=== PATIENT | male | born 1955 | race Caucasian/White ===

== ENCOUNTER 2020-12-31 21:15 | Observation (INO) | payer MEDICARE ==
[2020-12-31] MEDS ORDERED: Sodium Chloride 0.9% 10 ML Syringe FLUSH PRN (21:26)
[2020-12-31] MEDS ORDERED: Sodium Chloride 0.9% 1,000 ML IV ONE (21:26)
[2020-12-31] MEDS ORDERED: Sodium Chloride 0.9% 2.5 ML Syringe FLUSH PRN (21:26)
--- NOTE | 2020-12-31 21:50 | CR ---
INDICATION: Chest pain TECHNIQUE: Chest radiograph 1 view on 2 films COMPARISON: None FINDINGS: The sensitivity and specificity of the exam are severely limited by the patient`s body habitus. Mediastinum: Previous median sternotomy and coronary artery bypass grafting (CABG) noted. The heart silhouette is normal in size and morphology. Moderate elevation of the right hemidiaphragm is noted which may be due to diaphragmatic weakness or paralysis. Lung: Right basilar discoid and compressive atelectasis is noted. No sign of pleural effusion seen. No pneumothorax is identified. Bone and Soft tissue: Unremarkable for age. IMPRESSION: 1. Right basilar discoid and compressive atelectasis is noted. Dictated by Silvio Benítez MD @ 12/31/2020 9:49:27 PM Dictated by: Silvio Benítez MD @ 12/31/2020 21:49:32 (Electronically Signed)
[2020-12-31 22:01] LABS: BLOOD UREA NITROGEN,BUN 21 mg/dL (7.0-18.0); CARBON DIOXIDE,CO2 25.6 mmol/L (21.0-32.0); CHLORIDE,CL 103 mmol/L (98-107); GLUCOSE RANDOM 69 mg/dL (74-106); POTASSIUM,K 3.9 mmol/L (3.5-5.1); SODIUM,NA 140 mmol/L (136-148)
[2021-01-01] MEDS ORDERED: 50% Dextrose in Water 50 ML Syringe IVPUSH PRN (01:08)
[2021-01-01] MEDS ORDERED: Glucagon,Human Recombinant 1 MG Vial IM PRN (01:08)
[2021-01-01] MEDS ORDERED: Morphine 2 MG/ML SYRINGE IVPUSH PRN (01:10)
[2021-01-01] MEDS ORDERED: Ondansetron 4 MG/2 ML SDV IVPUSH PRN (01:10)
[2021-01-01] MEDS ORDERED: Acetaminophen 325 MG Tab PO PRN (01:12)
[2021-01-01] MEDS ORDERED: Albuterol/Ipratropium 4 GM Inhalation Spray INH PRN (01:19)
[2021-01-01 02:26] LABS: HEMOGLOBIN A1C 6.9 %
[2021-01-01] MEDS: Insulin Aspart 100 Units/ML 3 ML Pen SUBCUT SCH ×2 (07:33→11:41)
--- NOTE | 2021-01-01 08:04 | PCM.HP.2 ---
H&P History of Present Illness - General Date of Service: 01/01/21 Admit Problem/Dx: Admission Diagnosis/Problem Admission Diagnosis/Problem Acute coronary syndrome Source of Information: Patient History Limitations: Reports: No Limitations - History of Present Illness Initial Comments - Free Text/Narative: This 65-year-old male with past medical history of CAD status post CABG, DM type II, hypertension and Charcot foot to his right, presented to the ER with complaints of right-sided chest pain that started approximately an hour prior to arrival. He reports he is talking to his on the phone holding his left arm up. He reports the pain started in his left shoulder moved to his bilateral trapezius muscles. He reports that he was just feeling generally not well and had a of one of his . He reports that he was having some right sided pain this was worse with movement of his arms and can feel it with deep breathing. He denies any diaphoresis. He reports he had mild shortness of breath when he tried to lay down and was laying on his right side and then transition to his left which he felt that he continued to feel short of breath and then felt he needed to be evaluated in the ER for concerns of a heart attack. He reports he had a CABG approximately 4 years ago he reports at that time his chest pain was very indigestion-like and felt he only had GERD but when he was evaluated at hospital he was found to be having an CT. He reports he has been compliant with medications. 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 He denies any recent stress test since his CABG. He reports he continues to work limiting strenuous activities. He denies any tobacco use no recreational drug use and no alcohol use. He is originally from [facility] has no family appear at this time as he is working here. He reports is back home at this time. He reports he is planning on moving potentially soon with change in job. He denies any recent fevers chills. Reports on and off intermittent headache and body aches and pains. But he reports this has been going on for the last couple months. He does report that his had Covid 19 to 3 months ago and tested positive. He was never tested at that time but reports that for 10 days he had a significant cough along with febrile illness and felt that he likely just had Covid so he was not tested. He denies COVID-19 vaccination but is inquiring about possibly getting that soon. He denies any other abdominal pain diarrhea constipation and no black or bloody bowel movements. Denies any neurological deficits. Reports that recently has been significantly stressed due to possible change in jobs and difficulties with his current boss. In the ER no leukocytosis noted hemoglobin 10.7 adequate 37.1. Platelets 206,000. D-dimer 0.37. Sodium 140 potassium 3.9 BUN 21 creatinine 1.6 blood sugar 69. A1c 6.9 AST ALT bilirubin all within normal limits initial troponin negative. Triglyceride 62 cholesterol 129 LDL 80 TSH 3.0. Chest x-ray obtained which shows right basilar discoid compressive atelectasis no pneumothorax or pleural effusion noted moderate elevation of the right hemidiaphragm is noted which may due to diaphragmatic weakness or paralysis. Vital signs in the ER mildly elevated with blood pressure of 160s over 90s. Patient remains on room air. Covid swab returned positive. Patient has no hypoxia at this time. Patient admitted for observation for chest pain rule out ACS. Headache Pain Score (Numeric/FACES): 2 chest Pain Score (Numeric/FACES): 0 - Related Data Allergies/Adverse Reactions: Allergies Allergy/AdvReac Type Severity Reaction Status Date / Time doxycycline Allergy Rash Verified 01/01/21 03:22 Home Medications: Home Meds Allopurinol [Zyloprim] 300 mg PO DAILY 12/31/20 [History] Aspirin 81 mg PO DAILY 12/31/20 [History] Clopidogrel [Plavix] 75 mg PO DAILY 12/31/20 [History] Esomeprazole Magnesium [Nexium] 2.5 packet PO DAILY 12/31/20 [History] Ferrous Sulfate, Dried [Iron] 130 mg PO DAILY 12/31/20 [History] Fish Oil/[place]-3 Fatty Acids [Fish Oil 1,000 MG] 1,200 mg PO DAILY 12/31/20 [History] Insulin Aspart [NovoLOG] 10 units SUBCUT BID 12/31/20 [History] Insulin Glargine,Hum.Rec.Anlog [Basaglar Kwikpen U-100] 80 units SUBCUT DAILY 12/31/20 [History] Levothyroxine [Synthroid] 50 mcg PO DAILY 12/31/20 [History] Losartan [Cozaar] 50 mg PO DAILY 12/31/20 [History] Metoprolol Succinate 50 mg PO DAILY 12/31/20 [History] Vitamin E 400 unit PO DAILY 12/31/20 [History] amLODIPine [Norvasc] 10 mg PO DAILY 12/31/20 [History] atorvaSTATin [Lipitor] 80 mg PO BEDTIME 12/31/20 [History] sitaGLIPtin Phos/Metformin HCl [Janumet 50-1,000 MG] 50 - 1,000 mg PO BID 12/31/20 [History] Past Medical History HEENT History: Reports: None, Impaired Vision Cardiovascular History: Reports: Bypass, CAD, Hypertension, CT, Stents. Denies: Afib Other Cardiovascular History: stents Respiratory History: Reports: None. 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 Neurological History: Reports: None Psychiatric History: Reports: None Endocrine/Metabolic History: Reports: Diabetes, Type II, Hypothyroidism, Obesity/BMI 30+ Hematologic History: Reports: None Immunologic History: Reports: None Oncologic (Cancer) History: Reports: Renal Dermatologic History: Reports: Other (See Below) Other Dermatologic History: cyst removal to back - Infectious Disease History Infectious Disease History: Reports: None - Past Surgical History Head Surgeries/Procedures: Reports: None Cardiovascular Surgical History: Reports: Coronary Artery Bypass, Coronary Artery Stent Male Surgical History: Reports: Nephrectomy Musculoskeletal Surgical History: Reports: Amputation (partial R phalanges) Oncologic Surgical History: Reports: Other (See Below) Other Oncologic Surgeries/Procedures: nephrectomy (right) 2015 Social & Family History - Family History Family Medical History: No Pertinent Family History - Tobacco Use Tobacco Use Status *Q: Never Tobacco User Second Hand Smoke Exposure: No - Caffeine Use Caffeine Use: Reports: None - Alcohol Use Alcohol Use History: No - Recreational Drug Use Recreational Drug Use: No - Living Situation & Occupation Living situation: Reports: Occupation: Employed (Works in the oil field) H&P Review of Systems - Review of Systems: Review Of Systems: See Below General: Reports: Malaise. Denies: Fever, Chills HEENT: Reports: Headaches (Intermittent denies visual changes no migraine or aura). Denies: Sinus Congestion, Sore Throat Pulmonary: Reports: Shortness of Breath (Had mild shortness of breath last night has improved this morning). Denies: Cough, Sputum, Hemoptysis Cardiovascular: Reports: Chest Pain (Right-sided chest pain last night has not had none since arrival to [facility] unit). Denies: Palpitations, Dyspnea on Exertion, Edema, Lightheadedness Gastrointestinal: Reports: No Symptoms. Denies: Abdominal Pain, Black Stool, Bloody Stool, Nausea, Vomiting Genitourinary: Reports: No Symptoms. Denies: Dysuria, Frequency Musculoskeletal: Reports: No Symptoms Skin: Reports: No Symptoms Psychiatric: Reports: No Symptoms Neurological: Reports: No Symptoms Hematologic/Lymphatic: Reports: No Symptoms Immunologic: Reports: No Symptoms Exam - Exam Exam: See Below - Vital Signs Vital Signs: Last Vital Signs Temp 98.7 F 01/01/21 06:07 Pulse 104 H 01/01/21 06:07 Resp 16 01/01/21 06:07 BP 139/84 01/01/21 06:07 Pulse Ox 93 L 01/01/21 06:07 Weight: 142.746 kg - Exam Quality Assessment: DVT Prophylaxis. No: Supplemental Oxygen General: Alert, Oriented, Cooperative HEENT: Conjunctiva Clear, Mucosa Moist & [place], Posterior Pharynx Clear Lungs: Clear to Auscultation, Normal Respiratory Effort Cardiovascular: Regular Rate, Regular Rhythm, Normal S1, Normal S2 GI/Abdominal Exam: Normal Bowel Sounds, Soft, Non-Tender, Other (Obese abdomen) Back Exam: Normal Inspection, Full Range of Motion Extremities: Normal Inspection, Normal Range of Motion, Non-Tender, No Pedal Edema Neuro Extensive - Mental Status: Alert, Oriented x3 Neuro Extensive - Motor, Sensory, Reflexes: CN II-XII Intact Psychiatric: Alert, Normal Affect, Normal Mood - Patient Data Lab Results Last 24 hrs: Laboratory Results - last 24 hr 12/31/20 12/31/20 12/31/20 Range/Units 21:20 21:42 21:42 WBC 9.87 (4.0-11.0) K/uL RBC 4.13 L (4.50-5.90) M/uL Hgb 12.7 L (13.0-17.0) g/dL Hct 37.1 L (38.0-50.0) % MCV 89.8 (80.0-98.0) fL MCH 30.8 (27.0-32.0) pg MCHC 34.2 (31.0-37.0) g/dL RDW Std Deviation 46.7 (28.0-62.0) fl RDW Coeff of Andres 14 (11.0-15.0) % Plt Count 206 (150-400) K/uL MPV 10.10 (7.40-12.00) fL Neut % (Auto) 46.0 L (48.0-80.0) % Lymph % (Auto) 43.0 H (16.0-40.0) % [place] % (Auto) 9.0 (0.0-15.0) % Eos % (Auto) 1.6 (0.0-7.0) % Baso % (Auto) 0.4 (0.0-1.5) % Neut # (Auto) 4.5 (1.4-5.7) K/uL Lymph # (Auto) 4.2 H (0.6-2.4) K/uL [place] # (Auto) 0.9 H (0.0-0.8) K/uL Eos # (Auto) 0.2 (0.0-0.7) K/uL Baso # (Auto) 0.0 (0.0-0.1) K/uL Nucleated RBC % 0.0 /100WBC Nucleated RBCs # 0 K/uL D-Dimer, Quantitative 0.37 (0.0-0.50) mg/L FEU Sodium 140 (136-148) mmol/L Potassium 3.9 (3.5-5.1) mmol/L Chloride 103 (98-107) mmol/L Carbon Dioxide 25.6 (21.0-32.0) mmol/L BUN 21 H (7.0-18.0) mg/dL Creatinine 1.6 H (0.8-1.3) mg/dL Est Cr Clr Drug Dosing 54.23 mL/min Estimated GFR (MDRD) 43.7 ml/min Glucose 69 L (74-106) mg/dL POC Glucose (70-99) mg/dL Hemoglobin A1c (4.5 - 6.2) % Calcium 8.8 (8.5-10.1) mg/dL Total Bilirubin 0.4 (0.2-1.0) mg/dL AST 20 (15-37) IU/L ALT 25 (14-63) IU/L Alkaline Phosphatase 105 (46-116) U/L Troponin I < 0.050 (0.000-0.056) ng/mL Total Protein 7.7 (6.4-8.2) g/dL Albumin 3.8 (3.4-5.0) g/dL Globulin 3.9 (2.6-4.0) g/dL Albumin/Globulin Ratio 1.0 (0.9-1.6) Triglycerides (0-200) mg/dL Cholesterol (50-200) mg/dL LDL Cholesterol, Calc (60-180) mg/dL VLDL Cholesterol (5-55) mg/dL HDL Cholesterol (40-60) mg/dL Cholesterol/HDL Ratio (3.3-6.0) TSH, Ultra Sensitive (0.36-3.74) uIU/mL SARS-CoV-2 RNA (CHAN) (NEGATIVE) 12/31/20 12/31/20 01/01/21 Range/Units 22:06 23:10 02:10 WBC (4.0-11.0) K/uL RBC (4.50-5.90) M/uL Hgb (13.0-17.0) g/dL Hct (38.0-50.0) % MCV (80.0-98.0) fL MCH (27.0-32.0) pg MCHC (31.0-37.0) g/dL RDW Std Deviation (28.0-62.0) fl RDW Coeff of Andres (11.0-15.0) % Plt Count (150-400) K/uL MPV (7.40-12.00) fL Neut % (Auto) (48.0-80.0) % Lymph % (Auto) (16.0-40.0) % [place] % (Auto) (0.0-15.0) % Eos % (Auto) (0.0-7.0) % Baso % (Auto) (0.0-1.5) % Neut # (Auto) (1.4-5.7) K/uL Lymph # (Auto) (0.6-2.4) K/uL [place] # (Auto) (0.0-0.8) K/uL Eos # (Auto) (0.0-0.7) K/uL Baso # (Auto) (0.0-0.1) K/uL Nucleated RBC % /100WBC Nucleated RBCs # K/uL D-Dimer, Quantitative (0.0-0.50) mg/L FEU Sodium (136-148) mmol/L Potassium (3.5-5.1) mmol/L Chloride (98-107) mmol/L Carbon Dioxide (21.0-32.0) mmol/L BUN (7.0-18.0) mg/dL Creatinine (0.8-1.3) mg/dL Est Cr Clr Drug Dosing mL/min Estimated GFR (MDRD) ml/min Glucose (74-106) mg/dL POC Glucose (70-99) mg/dL Hemoglobin A1c (4.5 - 6.2) % Calcium (8.5-10.1) mg/dL Total Bilirubin (0.2-1.0) mg/dL AST (15-37) IU/L ALT (14-63) IU/L Alkaline Phosphatase (46-116) U/L Troponin I < 0.050 < 0.050 (0.000-0.056) ng/mL Total Protein (6.4-8.2) g/dL Albumin (3.4-5.0) g/dL Globulin (2.6-4.0) g/dL Albumin/Globulin Ratio (0.9-1.6) Triglycerides (0-200) mg/dL Cholesterol (50-200) mg/dL LDL Cholesterol, Calc (60-180) mg/dL VLDL Cholesterol (5-55) mg/dL HDL Cholesterol (40-60) mg/dL Cholesterol/HDL Ratio (3.3-6.0) TSH, Ultra Sensitive (0.36-3.74) uIU/mL SARS-CoV-2 RNA (CHAN) POSITIVE H (NEGATIVE) 01/01/21 01/01/21 01/01/21 Range/Units 02:10 02:10 06:30 WBC (4.0-11.0) K/uL RBC (4.50-5.90) M/uL Hgb (13.0-17.0) g/dL Hct (38.0-50.0) % MCV (80.0-98.0) fL MCH (27.0-32.0) pg MCHC (31.0-37.0) g/dL RDW Std Deviation (28.0-62.0) fl RDW Coeff of Andres (11.0-15.0) % Plt Count (150-400) K/uL MPV (7.40-12.00) fL Neut % (Auto) (48.0-80.0) % Lymph % (Auto) (16.0-40.0) % [place] % (Auto) (0.0-15.0) % Eos % (Auto) (0.0-7.0) % Baso % (Auto) (0.0-1.5) % Neut # (Auto) (1.4-5.7) K/uL Lymph # (Auto) (0.6-2.4) K/uL [place] # (Auto) (0.0-0.8) K/uL Eos # (Auto) (0.0-0.7) K/uL Baso # (Auto) (0.0-0.1) K/uL Nucleated RBC % /100WBC Nucleated RBCs # K/uL D-Dimer, Quantitative (0.0-0.50) mg/L FEU Sodium (136-148) mmol/L Potassium (3.5-5.1) mmol/L Chloride (98-107) mmol/L Carbon Dioxide (21.0-32.0) mmol/L BUN (7.0-18.0) mg/dL Creatinine (0.8-1.3) mg/dL Est Cr Clr Drug Dosing mL/min Estimated GFR (MDRD) ml/min Glucose (74-106) mg/dL POC Glucose 95 (70-99) mg/dL Hemoglobin A1c 6.9 H (4.5 - 6.2) % Calcium (8.5-10.1) mg/dL Total Bilirubin (0.2-1.0) mg/dL AST (15-37) IU/L ALT (14-63) IU/L Alkaline Phosphatase (46-116) U/L Troponin I (0.000-0.056) ng/mL Total Protein (6.4-8.2) g/dL Albumin (3.4-5.0) g/dL Globulin (2.6-4.0) g/dL Albumin/Globulin Ratio (0.9-1.6) Triglycerides 62 (0-200) mg/dL Cholesterol 129 (50-200) mg/dL LDL Cholesterol, Calc 80 (60-180) mg/dL VLDL Cholesterol 12 (5-55) mg/dL HDL Cholesterol 37 L (40-60) mg/dL Cholesterol/HDL Ratio 3.5 (3.3-6.0) TSH, Ultra Sensitive 3.00 (0.36-3.74) uIU/mL SARS-CoV-2 RNA (CHAN) (NEGATIVE) Result Diagrams: 12/31/20 21:42 12/31/20 21:20 Sepsis Event Note - Evaluation Sepsis Screening Result: No Definite Risk - Focused Exam Vital Signs: Vital Signs Temp Pulse Resp BP Pulse Ox Pulse Ox 01/01/21 06:07 98.7 F 104 H 16 139/84 93 L 01/01/21 03:18 97.8 F 86 16 160/96 H 95 01/01/21 01:05 95 95 01/01/21 00:12 74 14 167/83 H 96 12/31/20 22:21 70 14 145/78 H 95 12/31/20 21:20 97.8 F 82 18 182/93 H 98 - Problem List (1) Chest pain SNOMED Code(s): 70261109 ICD Code: R07.9 - CHEST PAIN, UNSPECIFIED Status: Acute Current Visit: Yes (2) COVID-19 SNOMED Code(s): 123220662 ICD Code: U07.1 - COVID-19 Status: Acute Current Visit: Yes (3) CAD (coronary artery disease) SNOMED Code(s): 16405987 ICD Code: I25.10 - ATHSCL HEART DISEASE OF [place] CORONARY ARTERY W/O ANG PCTRS Status: Chronic Current Visit: Yes (4) History of coronary artery bypass graft SNOMED Code(s): 462647667, 104464890 ICD Code: Z95.1 - PRESENCE OF AORTOCORONARY BYPASS GRAFT Status: Chronic Current Visit: Yes (5) Hypertension SNOMED Code(s): 99030555 ICD Code: I10 - ESSENTIAL (PRIMARY) HYPERTENSION Status: Chronic Current Visit: Yes (6) Diabetes type 2, controlled SNOMED Code(s): 52410839, 487442103 ICD Code: E11.9 - TYPE 2 DIABETES MELLITUS WITHOUT COMPLICATIONS Status: Chronic Current Visit: Yes Qualifiers: Diabetes mellitus snf insulin use: with snf use Diabetes mignon litus complication status: without complication Qualified Code(s): E11.9 - Type 2 diabetes mellitus without complications; Z79.4 - lobsterman (current) use of insulin (7) Obesity SNOMED Code(s): 291851439, 077337614 ICD Code: E66.9 - OBESITY, UNSPECIFIED Status: Chronic Current Visit: Yes Problem List Initiated/Reviewed/Updated: Yes Orders Last 24hrs: Active Orders 24 hr Category Date Time Status Patient Status [ADT] Routine ADT 01/01/21 00:26 Active Accu Check [Blood Glucose Check, Bedside] [RC] TIDAC Care 01/01/21 07:00 Active Ambulate [RC] ASDIRECTED Care 01/01/21 01:06 Active Antiembolic Devices [RC] PER UNIT ROUTINE Care 01/01/21 01:06 Active Oxygen Therapy [RC] ASDIRECTED Care 01/01/21 01:05 Active Pulse Oximetry [RC] ASDIRECTED Care 01/01/21 01:05 Active RT Post Treatment Assessment [RC] Click to Edit Care 01/01/21 01:19 Active RT Pre-Treatment Assessment [RC] Click to Edit Care 01/01/21 01:19 Active Telemetry Monitoring [Cardiac Monitoring] [RC] Q8H Care 01/01/21 00:41 Active Vital Signs [RC] Q4H Care 01/01/21 04:00 Active [employer] Diet [DIET] Diet 01/01/21 Breakfast Active B-TYPE NATRIURETIC PEPTIDE,BNP [CHEM] Stat Lab 12/31/20 21:42 Received Acetaminophen [TylenoL] Med 01/01/21 01:12 Active 650 mg PO Q6H PRN Albuterol/Ipratropium [Combivent Respimat] Med 01/01/21 01:19 Active See Dose Instructions INH Q4H PRN Aspirin Med 01/01/21 09:00 Pending 81 mg PO DAILY Dextrose 50% in Water Med 01/01/21 01:08 Active 50 ml IVPUSH ASDIRECTED PRN Glucagon,Human Recombinant [GlucaGen] Med 01/01/21 01:08 Active 1 mg IM ASDIRECTED PRN Insulin Aspart [NovoLOG] Med 01/01/21 07:30 Active See Protocol SUBCUT TIDAC Morphine Med 01/01/21 01:10 Active 1 mg IVPUSH Q4H PRN Ondansetron [Zofran] Med 01/01/21 01:10 Active 4 mg IVPUSH Q4H PRN Pantoprazole [ProTONIX IV] 40 mg Med 01/01/21 09:00 Active Sodium Chloride 0.9% [Normal Saline] 10 ml IV DAILY Sodium Chloride 0.9% [Saline Flush] Med 12/31/20 21:26 Active 10 ml FLUSH ASDIRECTED PRN Sodium Chloride 0.9% [Saline Flush] Med 12/31/20 21:26 Active 2.5 ml FLUSH ASDIRECTED PRN atorvaSTATin [Lipitor] Med 01/01/21 09:00 Pending 40 mg PO DAILY SCD [Sequential Compression Device] [OM.PC] Routine Oth 01/01/21 01:06 Ordered Saline Lock Insert [OM.PC] Stat Oth 12/31/20 21:27 Ordered Medication Orders Acetaminophen (Acetaminophen 325 Mg Tab) 650 mg PO Q6H PRN PRN Reason: Pain/Fever Albuterol/Ipratropium (Albuterol/Ipratropium 4 Gm Inhalation Carlin) 0 gm INH Q4H PRN PRN Reason: Dyspnea Aspirin (Aspirin 81 Mg Tab.Chew) 81 mg PO DAILY AMAIRANI Atorvastatin Calcium (Atorvastatin 40 Mg Tab) 40 mg PO DAILY [facility] Dextrose/Water (50% Dextrose In Water 50 Ml Syringe) 50 ml IVPUSH ASDIRECTED PRN PRN Reason: Hypoglycemia Glucagon (Glucagon,Human Recombinant 1 Mg Vial) 1 mg IM ASDIRECTED PRN PRN Reason: Hypoglycemia Pantoprazole Sodium 40 mg/ (Sodium Chloride) 10 mls @ 300 mls/hr IV DAILY [facility] Insulin Aspart (Insulin Aspart 100 Units/Ml 3 Ml Pen) 0 unit SUBCUT TIDAC [facility]; Protocol Last Admin: 01/01/21 07:33 Dose: Not Given Documented by: DEREK Morphine Sulfate (Morphine 2 Mg/Ml Syringe) 1 mg IVPUSH Q4H PRN PRN Reason: Pain Ondansetron HCl (Ondansetron 4 Mg/2 Ml Sdv) 4 mg IVPUSH Q4H PRN PRN Reason: Nausea/Vomiting Sodium Chloride (Sodium Chloride 0.9% 10 Ml Syringe) 10 ml FLUSH ASDIRECTED PRN PRN Reason: Keep Vein Open Last Admin: 12/31/20 21:39 Dose: 10 ml Documented by: AMELIA Sodium Chloride (Sodium Chloride 0.9% 2.5 Ml Syringe) 2.5 ml FLUSH ASDIRECTED PRN PRN Reason: Keep Vein Open Last Admin: 12/31/20 21:39 Dose: 2.5 ml Documented by: AMELIA Assessment/Plan Comment:: This 65-year-old male admitted with chest pain with ACS found to be COVID-19 pos itive 1. Chest pain -Troponin x3 -monitor telemetry with no ST or T wave changes. -Lipid panel well-controlled A1c stable -Patient plans on returning home at some point. Recommended outpatient stress test/Lexiscan to evaluate cardiac function. -Order echo 2. COVID-19 -Currently not hypoxic -Patient likely had COVID-19 approximate 3 months ago with as he had febrile illness with significant cough and shortness of breath but was never t ested and never needed hospitalization 3. CAD/hypertension -Continue home medications including statin Plavix and aspirin and antihypertensives 4. DM type II -ADA diet -Monitor blood sugars 3 times daily AC -Continue home insulin regimen -A1c well controlled DVT prophylaxis: Lovenox CODE STATUS: Full code Dispo: Likely home today Discharge plan: Patient will be discharged home today ACS ruled out troponins negative x2 no changes on telemetry. Echo pending on discharge. He will be set up with Dr. Lao, cardiology for outpatient cardiology management along with Ayalaan. He will also be set up with PCP Dr. Saleh here in town as he will be here for now and likely not returning home for some time. Patient is to continue home medications of aspirin Plavix statin losartan and metoprolol. Continue diabetic management with insulin. He can return to work in 1 day light duty until cardiology follow-up and evaluation. He does not need to isolate for COVID-19 as he likely was infected 3 months prior as he had febrile and acute illness at that time. He is likely still testing positive at this time. Patient remains asymptomatic and is to continue universal masking and social distancing. He has not obtained his COVID-19 vaccination but has voiced that he is wanting this. He will be arranged to have vaccines as an outpatient. All questions and concerns addressed. Patient to be discharged home today. Follow-up in the ER or clinic sooner if concerns should arise.
[2021-01-01] MEDS ORDERED: Clopidogrel 75 MG Tab PO SCH (09:00)
[2021-01-01] MEDS ORDERED: Pantoprazole 40 MG in Sodium Chloride 0.9% 10 ML IV SCH (09:00)
[2021-01-01] MEDS ORDERED: Levothyroxine 50 MCG Tab PO SCH (09:00)
[2021-01-01] MEDS ORDERED: Losartan 50 MG Tab PO SCH (09:00)
[2021-01-01] MEDS ORDERED: Metoprolol Succinate 50 MG Tab.ER PO SCH (09:00)
[2021-01-01] MEDS ORDERED: Aspirin 81 MG Tab.Chew PO SCH (09:00)
[2021-01-01] MEDS ORDERED: amLODIPine 5 MG Tab PO SCH (09:00)
[2021-01-01] MEDS ORDERED: atorvaSTATin 40 MG Tab PO SCH ×2 (21:00)
--- NOTE | 2021-01-02 12:54 | ECHO ---
EXAM DATE: 01/01/21 PATIENT'S AGE: 65 The ECHO report has been scanned into [employer] and can be seen in this patient's EMR (Electronic Medical Record) under the REPORTS section. The report has also been scanned into PACS. ALANA
--- NOTE | 2021-01-03 06:26 | EDM.PDOC ---
ED HPI GENERAL MEDICAL PROBLEM - General Chief Complaint: Chest Pain Stated Complaint: POSSIBLE HEART ATTACK Time Seen by Provider: 12/31/20 21:34 Source of Information: Reports: Patient History Limitations: Reports: No Limitations - History of Present Illness INITIAL COMMENTS - FREE TEXT/NARRATIVE: HISTORY AND PHYSICAL: History of present illness: Is a 65-year-old gentleman with a history significant for hypertension, CAD, status post CABG, diabetes, who presents ER today secondary to episodes of left shoulder pain rating down his left arm and up his jaw. Patient reports that he had some associated shortness of breath with it. Patient reports he has had headaches and generalized not feeling well for the last several days. Patient denies any recent nausea, vomiting, diarrhea, dysuria, frequency, urgency. Patient reports that he has had a headache with some tactile fevers at home. Patient reports that he lives alone and was concerned that he might be having a heart attack given his history. Review of systems: As per history of present illness and below otherwise all systems reviewed and negative. Past medical history: As per history of present illness and as reviewed below otherwise noncontributory. Surgical history: As per history of present illness and as reviewed below otherwise noncontributory. Social history: No reported history of drug abuse. Family history: As per history of present illness and as reviewed below otherwise noncontributory. Physical exam: This patient was seen and evaluated during the 2019 SARS-CoV-2 novel coronavirus pandemic period. Community viral transmission is ongoing at time of this encounter and the emergency department is operating under pandemic response procedures. Constitutional: Patient is oriented to person, place, and time. Appears well- developed and well-nourished. No distress. HEENT: Moist mucous membranes Head: Normocephalic and atraumatic Eyes: Right eye exhibits no discharge. Left eye exhibits no discharge. No scleral icterus Neck: Normal range of motion. No tracheal deviation present. Cardiovascular: Normal rate and regular rhythm. Pulmonary: Effort normal, no respiratory distress. Abdominal: No distention Musculoskeletal: Normal range of motion Neurologic: Alert and oriented to person, place and time. Skin: Parcoal, warm and dry. Psychiatric: Normal mood and affect. Behavior is normal. Judgment and thought content normal. Nursing note and vital signs have been reviewed Diagnostics: Chest Xray: Normal cardiac silhouette No infiltrates or effusions identified. No PTX No evidence of acute bony fracture. As interpreted by ER MD: Reid EKG date: 9:17 PM December 31, 2020 Assessment and plan: 65-year-old gentleman with significant cardiac risk factors who presents ER today with chest pain and discomfort specifically pain to his left shoulder and left jaw. Patient reports that the pain that he is experiencing today is different than his prior cardiac pain. Patient reports that his prior cardiac pain felt like GERD for several days and when he fell he came to the hospital he was told that he was having a heart attack. Today he is not experiencing any occurred. Patient's labs in the ER were unremarkable with a normal troponin. Patient's Covid test was positive. Given patient's significant cardiac history he will need to be admitted to have a rule out cardiac evaluation performed. Patient's pulse ox is 97 to 98% on room air. Patient's chest x-ray is clear without any evidence of Covid pneumonia. Patient's headache is more than likely related to his Covid diagnosis. Case was discussed with Dr. Gallo who will admit patient to observation status for further cardiac evaluation. Definitive disposition and diagnosis as appropriate pending reevaluation and review of above. Headache Pain Score (Numeric/FACES): 1 chest Pain Score (Numeric/FACES): 0 - Related Data Allergies Allergy/AdvReac Type Severity Reaction Status Date / Time doxycycline Allergy Rash Verified 01/01/21 03:22 Home Meds: Home Meds Allopurinol [Zyloprim] 300 mg PO DAILY 12/31/20 [History] Aspirin 81 mg PO DAILY 12/31/20 [History] Clopidogrel [Plavix] 75 mg PO DAILY 12/31/20 [History] Esomeprazole Magnesium [Nexium] 2.5 packet PO DAILY 12/31/20 [History] Ferrous Sulfate, Dried [Iron] 130 mg PO DAILY 12/31/20 [History] Fish Oil/[place]-3 Fatty Acids [Fish Oil 1,000 MG] 1,200 mg PO DAILY 12/31/20 [History] Insulin Aspart [NovoLOG] 10 units SUBCUT BID 12/31/20 [History] Insulin Glargine,Hum.Rec.Anlog [Basaglar Kwikpen U-100] 80 units SUBCUT DAILY 12/31/20 [History] Levothyroxine [Synthroid] 50 mcg PO DAILY 12/31/20 [History] Losartan [Cozaar] 50 mg PO DAILY 12/31/20 [History] Metoprolol Succinate 50 mg PO DAILY 12/31/20 [History] Vitamin E 400 unit PO DAILY 12/31/20 [History] amLODIPine [Norvasc] 10 mg PO DAILY 12/31/20 [History] atorvaSTATin [Lipitor] 80 mg PO BEDTIME 12/31/20 [History] sitaGLIPtin Phos/Metformin HCl [Janumet 50-1,000 MG] 50 - 1,000 mg PO BID 12/31/20 [History] Past Medical History HEENT History: Reports: None, Impaired Vision Cardiovascular History: Reports: Bypass, CAD, Hypertension, [place], Stents. Denies: Afib Other Cardiovascular History: stents Respiratory History: Reports: None. 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 Neurological History: Reports: None Psychiatric History: Reports: None Endocrine/Metabolic History: Reports: Diabetes, Type II, Hypothyroidism, Ob esity/BMI 30+ Hematologic History: Reports: None Immunologic History: Reports: None Oncologic (Cancer) History: Reports: Renal Dermatologic History: Reports: Other (See Below) Other Dermatologic History: cyst removal to back - Infectious Disease History Infectious Disease History: Reports: None - Past Surgical History Musculoskeletal Surgical History: Reports: Amputation (partial R phalanges) Social & Family History - Family History Family Medical History: No Pertinent Family History - Tobacco Use Tobacco Use Status *Q: Never Tobacco User Second Hand Smoke Exposure: No - Caffeine Use Caffeine Use: Reports: None - Recreational Drug Use Recreational Drug Use: No - Living Situation & Occupation Living situation: Reports: Occupation: Employed (Works in the oil field) ED ROS GENERAL - Review of Systems Review Of Systems: See Below ED EXAM, GENERAL - Physical Exam Exam: See Below GI/Abdominal: Normal Bowel Sounds, Soft, Non-Tender, Other (Obese abdomen) Back Exam: Normal Inspection, Full Range of Motion Extremities: Normal Inspection, Normal Range of Motion, Non-Tender, No Pedal Edema Course - Vital Signs Last Recorded V/S: Last Vital Signs Temp 98.1 F 01/01/21 08:10 Pulse 99 01/01/21 09:04 Resp 18 01/01/21 08:10 BP 144/92 H 01/01/21 09:04 Pulse Ox 94 L 01/01/21 08:10 - Orders/Labs/Meds Labs: Laboratory Tests 12/31/20 12/31/20 12/31/20 Range/Units 21:20 21:42 21:42 WBC 9.87 (4.0-11.0) K/uL RBC 4.13 L (4.50-5.90) M/uL Hgb 12.7 L (13.0-17.0) g/dL Hct 37.1 L (38.0-50.0) % MCV 89.8 (80.0-98.0) fL MCH 30.8 (27.0-32.0) pg MCHC 34.2 (31.0-37.0) g/dL RDW Std Deviation 46.7 (28.0-62.0) fl RDW Coeff of Andres 14 (11.0-15.0) % Plt Count 206 (150-400) K/uL MPV 10.10 (7.40-12.00) fL Neut % (Auto) 46.0 L (48.0-80.0) % Lymph % (Auto) 43.0 H (16.0-40.0) % [place] % (Auto) 9.0 (0.0-15.0) % Eos % (Auto) 1.6 (0.0-7.0) % Baso % (Auto) 0.4 (0.0-1.5) % Neut # (Auto) 4.5 (1.4-5.7) K/uL Lymph # (Auto) 4.2 H (0.6-2.4) K/uL Gladwin # (Auto) 0.9 H (0.0-0.8) K/uL Eos # (Auto) 0.2 (0.0-0.7) K/uL Baso # (Auto) 0.0 (0.0-0.1) K/uL Nucleated RBC % 0.0 /100WBC Nucleated RBCs # 0 K/uL D-Dimer, Quantitative 0.37 (0.0-0.50) mg/L FEU Sodium 140 (136-148) mmol/L Potassium 3.9 (3.5-5.1) mmol/L Chloride 103 (98-107) mmol/L Carbon Dioxide 25.6 (21.0-32.0) mmol/L BUN 21 H (7.0-18.0) mg/dL Creatinine 1.6 H (0.8-1.3) mg/dL Est Cr Clr Drug Dosing 54.23 mL/min Estimated GFR (MDRD) 43.7 ml/min Glucose 69 L (74-106) mg/dL Calcium 8.8 (8.5-10.1) mg/dL Total Bilirubin 0.4 (0.2-1.0) mg/dL AST 20 (15-37) IU/L ALT 25 (14-63) IU/L Alkaline Phosphatase 105 (46-116) U/L Troponin I < 0.050 (0.000-0.056) ng/mL B-Natriuretic Peptide (<100) PG/ML Total Protein 7.7 (6.4-8.2) g/dL Albumin 3.8 (3.4-5.0) g/dL Globulin 3.9 (2.6-4.0) g/dL Albumin/Globulin Ratio 1.0 (0.9-1.6) SARS-CoV-2 RNA (CHAN) (NEGATIVE) 12/31/20 12/31/20 12/31/20 Range/Units 21:42 22:06 23:10 WBC (4.0-11.0) K/uL RBC (4.50-5.90) M/uL Hgb (13.0-17.0) g/dL Hct (38.0-50.0) % MCV (80.0-98.0) fL MCH (27.0-32.0) pg MCHC (31.0-37.0) g/dL RDW Std Deviation (28.0-62.0) fl RDW Coeff of Andres (11.0-15.0) % Plt Count (150-400) K/uL MPV (7.40-12.00) fL Neut % (Auto) (48.0-80.0) % Lymph % (Auto) (16.0-40.0) % [place] % (Auto) (0.0-15.0) % Eos % (Auto) (0.0-7.0) % Baso % (Auto) (0.0-1.5) % Neut # (Auto) (1.4-5.7) K/uL Lymph # (Auto) (0.6-2.4) K/uL [place]win # (Auto) (0.0-0.8) K/uL Eos # (Auto) (0.0-0.7) K/uL Baso # (Auto) (0.0-0.1) K/uL Nucleated RBC % /100WBC Nucleated RBCs # K/uL D-Dimer, Quantitative (0.0-0.50) mg/L FEU Sodium (136-148) mmol/L Potassium (3.5-5.1) mmol/L Chloride (98-107) mmol/L Carbon Dioxide (21.0-32.0) mmol/L BUN (7.0-18.0) mg/dL Creatinine (0.8-1.3) mg/dL Est Cr Clr Drug Dosing mL/min Estimated GFR (MDRD) ml/min Glucose (74-106) mg/dL Calcium (8.5-10.1) mg/dL Total Bilirubin (0.2-1.0) mg/dL AST (15-37) IU/L ALT (14-63) IU/L Alkaline Phosphatase (46-116) U/L Troponin I < 0.050 (0.000-0.056) ng/mL B-Natriuretic Peptide 24 (<100) PG/ML Total Protein (6.4-8.2) g/dL Albumin (3.4-5.0) g/dL Globulin (2.6-4.0) g/dL Albumin/Globulin Ratio (0.9-1.6) SARS-CoV-2 RNA (CHAN) POSITIVE H (NEGATIVE) Meds: Medications Discontinued Medications Generic Name Dose Route Start Last Admin Trade Name Freq PRN Reason Stop Dose Admin Acetaminophen 650 mg 01/01/21 01:12 Acetaminophen 325 Mg Tab PO Q6H PRN Pain/Fever Albuterol/Ipratropium 0 gm 01/01/21 01:19 Albuterol/Ipratropium 4 Gm Inhalation [place] INH Q4H PRN Dyspnea Amlodipine Besylate 10 mg 01/01/21 09:00 01/01/21 09:03 Amlodipine 5 Mg Tab PO 10 mg DAILY AMAIRANI Administration Aspirin 81 mg 01/01/21 09:00 01/01/21 08:40 Aspirin 81 Mg Tab.Chew PO 81 mg DAILY AMAIRANI Administration Atorvastatin Calcium 40 mg 01/01/21 21:00 Atorvastatin 40 Mg Tab PO BEDTIME AMAIRANI Atorvastatin Calcium 80 mg 01/01/21 21:00 Atorvastatin 40 Mg Tab PO BEDTIME AMAIRANI Clopidogrel Bisulfate 75 mg 01/01/21 09:00 01/01/21 09:03 Clopidogrel 75 Mg Tab PO 75 mg DAILY AMAIRANI Administration Dextrose/Water 50 ml 01/01/21 01:08 50% Dextrose In Water 50 Ml Syringe IVPUSH ASDIRECTED PRN Hypoglycemia Glucagon 1 mg 01/01/21 01:08 Glucagon,Human Recombinant 1 Mg Vial IM ASDIRECTED PRN Hypoglycemia Sodium Chloride 1,000 mls @ 999 mls/hr 12/31/20 21:26 12/31/20 21:39 Normal Saline IV 12/31/20 22:26 999 mls/hr .Bolus ONE Administration Pantoprazole Sodium 40 mg/ 10 mls @ 300 mls/hr 01/01/21 09:00 01/01/21 08:15 Sodium Chloride IV 300 mls/hr DAILY [facility] Administration Insulin Aspart 0 unit 01/01/21 07:30 01/01/21 11:41 Insulin Aspart 100 Units/Ml 3 Ml Pen SUBCUT Not Given TIDAC [facility] Protocol Levothyroxine Sodium 50 mcg 01/01/21 09:00 01/01/21 09:05 Levothyroxine 50 Mcg Tab PO 50 mcg ACBREAKFAST AMAIRANI Administration Losartan Potassium 50 mg 01/01/21 09:00 01/01/21 09:03 Losartan 50 Mg Tab PO 50 mg DAILY [facility] Administration Metoprolol Succinate 50 mg 01/01/21 09:00 01/01/21 09:04 Metoprolol Succinate 50 Mg Tab.Er PO 50 mg DAILY AMAIRANI Administration Morphine Sulfate 1 mg 01/01/21 01:10 Morphine 2 Mg/Ml Syringe IVPUSH Q4H PRN Pain Ondansetron HCl 4 mg 01/01/21 01:10 Ondansetron 4 Mg/2 Ml Sdv IVPUSH Q4H PRN Nausea/Vomiting Sodium Chloride 10 ml 12/31/20 21:26 12/31/20 21:39 Sodium Chloride 0.9% 10 Ml Syringe FLUSH 10 ml ASDIRECTED PRN Administration Keep Vein Open Sodium Chloride 2.5 ml 12/31/20 21:26 12/31/20 21:39 Sodium Chloride 0.9% 2.5 Ml Syringe FLUSH 2.5 ml ASDIRECTED PRN Administration Keep Vein Open Departure - Departure Time of Disposition: 23:00 Disposition: Refer to Observation Condition: Good Clinical Impression: Acute coronary syndrome, COVID-19, CAD (coronary artery disease), History of coronary artery bypass graft, Hypertension, Obesity Diabetes type 2, controlled Qualifiers: Diabetes mellitus mcc insulin use: with mcc use Diabetes mellitus complication status: without complication Qualified Code(s): E11.9 - Type 2 diabetes mellitus without complications - Discharge Information *PRESCRIPTION DRUG MONITORING PROGRAM REVIEWED*: Not Applicable *COPY OF PRESCRIPTION DRUG MONITORING REPORT IN PATIENT SERA: Not Applicable Sepsis Event Note (ED) - Evaluation Sepsis Screening Result: No Definite Risk
--- NOTE | 2021-01-03 19:36 | PCM.EKG ---
#2 Interpretation EKG Interpretation Comments: EKG date 12/31/2020 1:17 PM EKG: As interpreted by ER physician: Reid: Nonspecific ST-T wave abnormalities Normal axis No evidence of ST elevation RI Normal sinus rhythm heart rate of 82
== END 2021-01-01 13:13 | disposition home or self-care (01) ==
LOC: MW.ED 21:15 → MW.MS 01-01 00:26
PROVIDERS: ADMIT Student in an Organized Health Care Education/Training Program; ATTEND Student in an Organized Health Care Education/Training Program
DX: I24.9 Acute ischemic heart disease, unspecified (principal); U07.1 COVID-19; I10 Essential (primary) hypertension; E78.00 Pure hypercholesterolemia, unspecified; I25.2 Old myocardial infarction; I25.10 Atherosclerotic heart disease of native coronary artery without angina pectoris; E11.9 Type 2 diabetes mellitus without complications; E03.9 Hypothyroidism, unspecified; E66.9 Obesity, unspecified; Z68.41 Body mass index [BMI] 40.0-44.9, adult; Z85.528 Personal history of other malignant neoplasm of kidney; Z20.822 Contact with and (suspected) exposure to COVID-19; Z95.1 Presence of aortocoronary bypass graft
CPT/HCPCS: 36415; 71045; 80053; 80061; 82947; 83036; 83880; 84443; 84484; 85025; 85379; 93005; 93306; A9270; C9113; J7030; U0002